=== PATIENT | male | born 1935 | race Caucasian/White ===

== ENCOUNTER → 2018-07-11 | Outpatient (CLI) | payer OTHER, MEDICARE ==
[~2018-07-11] MED LIST: ALDACTONE25 MG PO; ASPIRIN EC81 M1 PO; BYSTOLIC 5 MG5 MG PO; CARDIOTAB PO; CARVEDILOL3.125 MG PO; CARVEDILOL6.25 MG PO; CEFTIN 250 MG250 MG PO; CO Q-10200 MG PO; COQ10 SG 100 S1 EACH PO; COREG3.125 MG PO; CRESTOR10 MG; CRESTOR10 MG PO; DEMADEX20 MG PO; ENTRESTO 24 MG1 EACH PO; ENTRESTO 49 MG1 EACH; FISH OIL 1,001000 M2 PO; FISH OIL SOFTG1 EACH; FLOMAX0.4 MG PO; FUROSEMIDE 40 M40 MG PO; GUAIFENESIN/COD10 M1 PO; HALDOL PO; IBUPROFEN 400400 M1 PO; LACTINEX CHEWA1 EACH PO; LASIX 40 MG TAB40 M1 PO; LIVALO4 MG PO; LOSARTAN POTASS25 MG PO; MULTIVITAMINS1 EAC7 PO; NAFCILLIN 1GM AD1 G1; NIASPAN 500 MG500 M1 PO; OMEGA-3100 MG PO; OMEGA-31000 M1 PO; PLAVIX 75 MG TA75 MG PO; POTASSIUM20 PO; PREDNISONE 20 M20 MG PO; TESSALON PERLE100 MG PO; TYLENOL325 MG PO
== END ==
LOC: MRI 09:32
DX: M51.36 Other intervertebral disc degeneration, lumbar region (principal); M48.061 Spinal stenosis, lumbar region without neurogenic claudication; M47.816 Spondylosis without myelopathy or radiculopathy, lumbar region; M51.37 Other intervertebral disc degeneration, lumbosacral region; M48.07 Spinal stenosis, lumbosacral region; M41.86 Other forms of scoliosis, lumbar region; M71.38 Other bursal cyst, other site; Z98.890 Other specified postprocedural states

== ENCOUNTER → 2018-09-07 | Outpatient (CLI) | payer OTHER, MEDICARE ==
[2018-09-07] VITALS (7 sets, daily range): BP systolic 96–103; BP diastolic 55–68
[~2018-09-07] VITALS: Ht 185.4 cm; Wt 75.7 kg
[~2018-09-07] MED LIST changes: +ALIGN4 MG PO; +DIGOXIN125 MCG PO
== END | disposition home or self-care (01) ==
LOC: CAT 12:16 → EDSTATUS 13:24
DX: M71.38 Other bursal cyst, other site (principal); M54.16 Radiculopathy, lumbar region; E78.5 Hyperlipidemia, unspecified; I25.2 Old myocardial infarction; I42.9 Cardiomyopathy, unspecified; I49.9 Cardiac arrhythmia, unspecified; Z95.1 Presence of aortocoronary bypass graft; I25.10 Atherosclerotic heart disease of native coronary artery without angina pectoris; Z98.890 Other specified postprocedural states; Z98.61 Coronary angioplasty status; Z88.8 Allergy status to other drugs, medicaments and biological substances; Z79.899 Other long term (current) drug therapy

== ENCOUNTER → 2018-09-25 | Outpatient (CLI) | payer OTHER, MEDICARE | LOC: CAT 12:21 | DX: R10.2 Pelvic and perineal pain (principal); M25.551 Pain in right hip; M47.816 Spondylosis without myelopathy or radiculopathy, lumbar region; M48.061 Spinal stenosis, lumbar region without neurogenic claudication ==

== ENCOUNTER 2018-10-14 15:08 | Inpatient (IN) | payer OTHER, MEDICARE ==
[~2018-10-14] VITALS: Ht 185.4 cm; Wt 75.7 kg
--- NOTE | ~2018-10-14 | HC ---
[facility] [place] [address] CONSULTATION Name: NEPTALI RODRIGUEZ Room #: 205-P ADM IN M.R.#: [id number] Admission: 10/14/18 ������������������ Attend Phys: Nate Coronel Discharge: ������������������ Date of : 39 Report #: [id number] THIS REPORT FOR: //name// CC: Nate Moncada Ortiz DATE OF SERVICE: 10/14/2018 CARDIOLOGY CONSULTATION HISTORY OF PRESENT ILLNESS: The patient is an 82-year-old male well known to myself. He has a history of a mildly severe ischemic cardiomyopathy. He has been having some progressive shortness of breath and some dyspnea, generalized weakness. Although, he denies fever or chills associated. He had bypass surgery, then subsequently a stent to the left main. This was in 2010. 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 The ejection fraction has been 25-30% range with anterior apical septal akinesis and moderate mitral and tricuspid regurgitation by history. He has been doing fairly well and was scheduled for nuclear stress test and echo next month. He has been compliant with his medications. They have been carvedilol 3.125, digoxin 0.125, Multi-Calixto, omega 3, probiotic, Entresto 49/51 b.i.d., torsemide 20, rosuvastatin 20 and Xarelto 15. PAST MEDICAL HISTORY: Positive for coronary artery disease, prior bypass, prior infarct, ischemic cardiomyopathy, functional class, at least functional class 2 until this event, DJD. 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 SOCIAL HISTORY: He is , socially moderate alcohol use, no tobacco use. He is retired, 3 cups of coffee a day, some exercise. FAMILY HISTORY: Strongly positive for premature coronary artery disease including mother, father and 2 brothers. REVIEW OF SYSTEMS: Negative except for the generalized weakness and progressive shortness of breath over the last few days. His EKG is atrial fibrillation with nonspecific changes. PHYSICAL EXAMINATION: GENERAL: He is alert. He is less short of breath after having received significant diuresis. VITAL SIGNS: Blood pressure has been in the 90 systolic range. Pulse is 70s. HEENT: Eyes reveal xanthelasmas. Pharynx is clear. NECK: Shows preserved upstrokes, may be evidence of a trace of JVD. LUNGS: Clear anteriorly. They are diminished in the bases, few crackles in the [facility] [address] [place] [address] CONSULTATION Name: NEPTALI RODRIGUEZ Room #: 205-P [facility] IN M.R.#: [id number] Admission: 10/14/18 ������������������ Attend Phys: Nate Coronel Discharge: ������������������ Date of : 37 Report #: [id number] left base. CARDIOVASCULAR: Regular rate and rhythm, S1, S2, without murmur or gallop. ABDOMEN: Soft, slightly protuberant. EXTREMITIES: Reveal trace of edema. Distal pulses diminished, but intact. NEUROLOGIC: Nonfocal. SKIN: Warm and dry without xanthoma or ulcer. MUSCULOSKELETAL: No gross joint deformity. LABORATORY DATA: Creatinine 1.9, potassium 5.0, alkaline phosphatase 122, GFR 34. Troponin is 4.43, not significant for ischemia. BNP is 9872. H and H 9.3 and 29.1, white count 9.7. Chest x-ray shows some interstitial edema, perihilar infiltrate. ASSESSMENT: 1. Acute on chronic systolic heart failure. 2. Coronary artery disease with prior coronary artery bypass graft and left main stent. 3. Moderately severe ischemic cardiomyopathy, ejection fraction of 25-30% range by history. 4. Permanent atrial fibrillation. 5. Hypertension. 6. Chronic kidney disease. 7. Hypercholesterolemia. RECOMMENDATIONS AND PLAN: We will currently hold Entresto. We will continue with Coreg due to borderline hypotension, although this is not far off of his baseline. I will continue her Lasix 80 IV b.i.d. Digoxin level is to be checked. We will repeat the echo, Doppler in the morning. Doxycycline had been initiated, although I do not think there is any evidence of any pneumonitis. I will continue to follow repeating echo and possibly consider repeating and obtaining this nuclear stress test pharmacologic to rule out significant underlying ischemia. It is not clear, if he has been fairly regimen in his diet with some minimal weight gain, so it is not clear whether he has tipped him over, but certainly chest x-ray, BNP, would support an acute on chronic systolic failure exacerbation. Thank you for asking me to assist in the care of this patient. ��������������������������������������������� ���������������������������������������� By: ��������������������������������������������� 2232 0925 Juan M Joseph MD, FACC /nt
--- NOTE | ~2018-10-14 | HC ---
[facility] [place] [address] CONSULTATION Name: NEPTALI RODRIGUEZ Room #: 205-P [facility] IN M.R.#: [id number] Admission: 10/14/18 ������������������ Attend Phys: Nate Coronel Discharge: ������������������ Date of : 37 Report #: [id number] THIS REPORT FOR: //name// CC: Nate Moncada Ortiz DATE OF SERVICE: 10/15/2018 GASTROINTESTINAL CONSULTATION HISTORY OF PRESENT ILLNESS: The patient is an 82-year-old male who I have been asked to see for further evaluation of his normocytic anemia. He was hospitalized for increasing shortness of breath and what looks like congestive heart failure and has had significant improvement of his symptoms since hospitalization. His medical history is very complicated, but he did have a colonoscopy approximately 3 years ago. He denies any rectal bleeding, change in bowel pattern besides some mild constipation while taking tramadol. He denies melena. He also has had some generalized weakness and shortness of breath with exertion. Medical history is well outlined in the chart, but includes angioplasty, inguinal hernia repair, tonsillectomy, left shoulder injury, heart failure, ischemic cardiomyopathy, mild to moderate aortic regurg, mitral regurg, tricuspid regurg, back surgery, AICD placement. He denies alcohol or tobacco consumption. MEDICATION LIST: Includes CoQ10, Coreg, Entresto, multivitamin, fish oil, Flomax, Demadex, Lanoxin, Tylenol, Align, doxycycline, Xarelto, Crestor. REVIEW OF SYSTEMS: Negative for weight loss. He has had weakness and some fatigue. He denies head, eyes, ears, nose or throat complaints. He denies chest pain, chest palpitation, chest pressure, cough, shortness of breath, wheezing, genitourinary, musculoskeletal or neuropsychiatric complaints beyond that mentioned above. PHYSICAL EXAMINATION: VITAL SIGNS: Afebrile, vital signs stable. HEENT: Nonicteric. NECK: No JVD, thyromegaly or bruits. CARDIOVASCULAR: Regular. LUNGS: Clear. ABDOMEN: Nonprotuberant. PERTINENT LABORATORY DATA: Include hemoglobin 9.3, MCV 87, RDW 17, platelet count 297, white count 9.7. Chemistry: BUN 46, creatinine 1.9. He did have positive troponins. Albumin 2.9, mild congestive heart failure on x-ray. ASSESSMENT: In summary, the patient has anemia with normal indices. This could [address] [place] [address] CONSULTATION Name: NEPTALI RODRIGUEZ Room #: 205-P [facility] IN M.R.#: [id number] Admission: 10/14/18 ������������������ Attend Phys: Nate Coronel Discharge: ������������������ Date of : 37 Report #: [id number] be related to renal insufficiency and other non-GI related etiologies. He has had no significant change in his bowel pattern, denies blood in his stools either black or bloody. If his anemia persisted or worsened, I would certainly heme test his stool to see if there was evidence of active bleeding. I would empirically cover him with a PPI. We will follow. ��������������������������������������������� ���������������������������������������� By: ��������������������������������������������� [id number] Carl Glass MD /nt
[2018-10-14 15:09] VITALS: BP 98/64
[2018-10-14 15:51] LABS: HEMATOCRIT 29.1 % (42.0-52.0); HEMOGLOBIN 9.3 gm/dL (14.0-18.0); LYMPHOCYTES 27.3 % (24.0-44.0); MCH 27.7 pg (26.0-34.0); MCHC 31.9 g/dL (28.0-37.0); MONOCYTES 7.6 % (1.0-8.0); PLATELET COUNT 297 thou/uL (150-400); POLYS 62.1 % (36.0-66.0); RBC 3.34 mil/uL (4.50-6.00); WBC 9.7 thou/uL (4.0-11.0)
[2018-10-14 15:58] LABS: CALCIUM 9.8 mg/dL (8.5-10.1); CREATININE 1.9 mg/dL (0.7-1.3)
[2018-10-14] MEDS ORDERED: DOXYCYCLINE 10100 MG PO (16:01)
[2018-10-14 16:05] LABS: URINE BILIRUBIN NEGATIVE (Negative); URINE BLOOD NEGATIVE (Negative); URINE CLARITY CLEAR; URINE COLOR YELLOW; URINE GLUCOSE-RANDOM* NEGATIVE (Negative); URINE KETONES NEGATIVE (Negative); URINE LEUKOCYTES-REFLEX NEGATIVE (Negative); URINE NITRITE-REFLEX NEGATIVE (Negative); URINE PROTEIN (DIPSTICK) NEGATIVE (Negative); URINE UROBILINOGEN 0.2 E.U./dl (0.2-1.0)
[2018-10-14 16:07] LABS: ALBUMIN 3.1 g/dL (3.4-5.0); TOTAL BILIRUBIN 0.7 mg/dL (<0.1-1.0); TOTAL PROTEIN 6.7 g/dL (6.4-8.2); TROPONIN-I 0.39 ng/mL (<0.06)
[2018-10-14 16:43] VITALS: BP 92/66
[2018-10-14] MEDS ORDERED: XARELTO15 MG PO (16:54)
[2018-10-14 16:55] VITALS: BP 94/65
[2018-10-14] MEDS ORDERED: CRESTOR20 MG PO (16:55)
[2018-10-14 17:10] VITALS: BP 99/73
--- NOTE | 2018-10-14 18:39 | NUR ---
PT TO THE UIT FROM THE ER - ORINETED TO ROOM AND BED SPACE. ASSESSMENT CHARTED. MEDS PER MAR - NO CO'S OF PAIN OR NAUSEA. PT IS FALL RISK WITH PRECAUTIONS IN PLACE. DANIEL DIET AND FLUIDS. NO CO'S T THE PRESENT TIME.
[2018-10-14 19:40] VITALS: BP 81/49
[2018-10-15] VITALS (7 sets, daily range): BP systolic 94–124; BP diastolic 56–72
[2018-10-15 05:44] LABS: CALCIUM 9.3 mg/dL (8.5-10.1); CREATININE 1.9 mg/dL (0.7-1.3); POTASSIUM 4.4 mmol/L (3.5-5.1)
--- NOTE | 2018-10-15 05:52 | NUR ---
ASSESSMENTS CHARTED. PATIENT REQUESTED SLEEPING PILL AT START OF SHIFT, THEN TURNED IT DOWN WHEN EVENING MEDS WERE PASSED. C/O FEELING LIKE HIS HEART WAS SLOWING DOWN EVERYTIME HE STARTED TO SLEEP, SO HE WOULD WAKE HIMSELF UP. TOLD HIM HIS HEART RATE WAS FINE, WE WERE MONITORING IT AND IT WAS OK TO FALL ASLEEP. SLEPT FITFULLY. USING URINAL AT BEDSIDE, FORGETS TO CALL PRIOR TO STANDING UP TO USE URINAL. FALL PRECAUTIONS IN PLACE. DENIES PAIN.
[2018-10-15 05:53] LABS: ALBUMIN 2.9 g/dL (3.4-5.0); PHOSPHORUS 3.7 mg/dL (2.5-4.9); TROPONIN-I 0.42 ng/mL (<0.06)
--- NOTE | 2018-10-15 15:24 | EKG ---
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 : 1935 Requested By: Julissa Head Order Number: [id number] MD: Morro Weiss Measurements Intervals [place] Rate: 80 P: FL: QRS: -31 QRSD: 112 T: 167 QT: 402 QTc: 464 Interpretive Statements Atrial fibrillation Nonspecific intraventricular conduction delay Nonspecific ST and T wave abnormality Compared to ECG 02/12/2015 07:40:16 atrial fibrillation has replaced sinus rhythm premature ventricular complexes are no longer present Electronically Signed On 10-15-2018 15:24:34 CDT by Morro Weiss [email or web address] ��������������������������������������������� <ELECTRONICALLY SIGNED> ���������������������������������������� By: Morro Weiss MD, [facility] ��������������������������������������������� 10/15/18 1524 1531 1531 Morro Weiss MD, [facility] /EPI
--- NOTE | 2018-10-15 15:28 | NUR ---
REMAINS AFIB/BBB WITH VR 70-80, LUNGS CLEAR, RA SAT IS 95% UP IN ROOM WITH WALKER, STEADY WITH WALKER, PT WORRIED ABOUT NOT SLEEPING AT NIGHT, ENCOURAGED TO TAKE A SLEEPING PILL TONIGHT. NO C/O CHEST PAIN OR SOB TODAY, STAYING WITHIN FR, DIEURESING WELL WILL CONTINUE TO MONITER AND CARE FOR PT PER PLANOF CARE
[2018-10-16 04:03] LABS: CALCIUM 9.6 mg/dL (8.5-10.1); CREATININE 2.1 mg/dL (0.7-1.3)
[2018-10-16 04:50] VITALS: BP 102/69
--- NOTE | 2018-10-16 05:58 | NUR ---
ASSESSMENTS CHARTED. PT TOOK REQUESTED SLEEPING PILL TONIGHT, BUT ALSO RECEIVED A DOSE OF LASIX AT BEDTIME. PATIENT WAS ABLE TO SLEEP FITFULLY. NPO SINCE MIDNIGHT FOR STRESS TEST. STILL HAS NOT HAD BOWEL MOVEMENT. REQUESTED PRUNE JUICE. DENIED PAIN. FALL PRECAUTIONS IN PLACE. PATIENT IMPULSIVE AND FORGETFUL OF ABILITY.
[2018-10-16 07:58] LABS: HEMATOCRIT 27.3 % (42.0-52.0); MCH 28.1 pg (26.0-34.0); MCHC 32.8 g/dL (28.0-37.0); MCV 85.7 fL (80.0-100.0); RBC 3.19 mil/uL (4.50-6.00); RDW 16.8 % (10.5-14.5); WBC 9.7 thou/uL (4.0-11.0)
[2018-10-16 08:20] VITALS: BP 88/54
[2018-10-16 11:09] LABS: KAPPA FREE LIGHT CHAINS 84.3 mg/L (3.3-19.4); KAPPA/LAMBDA RATIO 4.79 (0.26-1.65); LAMBDA FREE LIGHT CHAINS 17.6 mg/L (5.7-26.3)
--- NOTE | 2018-10-16 11:47 | 2DMMODE ---
[facility] [address] [place] [address] 2 D/M-MODE ECHOCARDIOGRAM Name: NEPTALI RODRIGUEZ Room #: 205-P ADM IN M.R.#: [id number] ������������� Admission: 10/14/18 ������������� Attend Phys: Nate Carvajal Discharge: ��� ������������� ��� Date of : 39 Date of Service: 10/16/18 1146 �� Report #: [id number] �������� ��������������������������������������������[id number] THIS REPORT FOR: //name// APPROVED REPORT Study performed: 10/16/2018 11:00:57 EXAM: Comprehensive 2D, Doppler, and color-flow Echocardiogram Patient Location: Echo lab Room #: 205 Status: routine BSA: 1.97 HR: 79 bpm BP: 88/54 mmHg Rhythm: Atrial Fibrillation Other Information Study Quality: Good Indications Congestive Heart Failure Atrial Fibrillation CAD Cardiomyopathy 2D Dimensions RVDd: 47.24 mm IVSd: 9.28 (7-11mm) LVOT Diam: 22.31 (18-24mm) LVDd: 64.34 mm PWd: 8.80 (7-11mm) Ascending Ao: 40.11 (22-36mm) LVDs: 55.91 (25-40mm) Aortic Root: 36.21 mm IVC: 23.00 mm Volumes Left Atrial Volume (Systole) Single Plane 4CH: 123.39 mL Single Plane 2CH: 87.46 mL LA ESV Index: 58.00 mL/m2 Aortic Valve AoV Peak Alexx.: 1.18 m/s AO Peak Gr.: 5.55 mmHg LVOT Max P.93 mmHg LVOT Max V: 0.86 m/s BECKI Vmax: 2.84 cm2 Pulmonary Valve [facility] [address] [place] [address] 2 D/M-MODE ECHOCARDIOGRAM Name: NEPTALI RODRIGUEZ Room #: 205-P [facility] IN ..#: [id number] ������������� Admission: 10/14/18 ������������� Attend Phys: Nate Carvajal Discharge: ��� ������������� ��� Date of : 39 Date of Service: 10/16/18 1146 �� Report #: [id number] �������� ��������������������������������������������[id number] PV Peak Alexx.: 0.81 m/s PV Peak Gr.: 2.65 mmHg Tricuspid Valve TR Peak Alexx.: 2.63 m/s TR Peak Gr.: 27.58 mmHg PA Pressure: 38.00 mmHg Left Ventricle Left ventricle is dilated. There is severe global hypokinesis of the left ventricle.worse inf lateral There is normal left ventricular wall thickness. Left ventricular ejection fraction is severely decreased. LVEF is 20-25%. This study is not technically sufficient to allow evaluation of the LV diastolic function due to atrial fibrillation. Right Ventricle Right ventricle is dilated. Right ventricle is hypokinetic. Atria Left atrium is dilated. Right atrium is dilated. Aortic Valve The aortic valve is normal in structure. Aortic valve is calcified. Mild aortic regurgitation. There is no aortic valvular stenosis. Mitral Valve The mitral valve is normal in structure. Moderate mitral regurgitation. No evidence of mitral valve stenosis. Tricuspid Valve The tricuspid valve is normal in structure. There is mild tricuspid regurgitation. Estimated PAP 38 mmHg. There is mild pulmonary hypertension. Pulmonic Valve The pulmonary valve is normal in structure. Mild pulmonic regurgitation. Great Vessels The aortic root is normal in size. IVC is dilated and collapses <50% with inspiration. Pericardium There is no pericardial effusion. [facility] [address] [place] [address] 2 D/M-MODE ECHOCARDIOGRAM Name: NEPTALI RODRIGUEZ Room #: 205-P [facility] IN .R.#: [id number] ������������� Admission: 10/14/18 ������������� Attend Phys: Nate Carvajal Discharge: ��� ������������� ��� Date of : 39 Date of Service: 10/16/18 1146 �� Report #: [id number] �������� ��������������������������������������������[id number] <Conclusion> Left ventricle is dilated. Left ventricular ejection fraction is severely decreased. There is severe global hypokinesis of the left ventricle.worse inf lateral Right ventricle is dilated. Right ventricle is hypokinetic. Left atrium is dilated. Right atrium is dilated. The aortic valve is normal in structure. Aortic valve is calcified. Mild aortic regurgitation. Moderate mitral regurgitation. There is mild tricuspid regurgitation. Estimated PAP 38 mmHg. There is mild pulmonary hypertension. The aortic root is normal in size. There is no pericardial effusion. ��������������������������������������������� <ELECTRONICALLY SIGNED> ���������������������������������������� By: Juan M Joseph MD, [facility] ��������������������������������������������� 10/16/18 1146 1146 45 Juan M Joseph MD, [facility] /INF
--- NOTE | 2018-10-16 16:01 | NUR ---
VSS REMAINS AFIB WITH BBB, LUNGS CLEAR AND DIMINISHED O2 SAT RA IS 97% TST TEST TODAY, NO C/O CHEST PAIN. UP IN GAY WITH WALKER WITH AND TOLERATED WELL AND STEADY ON FEET. WILL CONTINUE TO MONITER AND CARE FOR PT PER PLANOF CARE
--- NOTE | 2018-10-16 17:07 | NUR ---
met with at bedside. Patient in restroom. reports her and patient live in independent home with steps inside home. reports railings on both sides of steps and no difficulty for her or patient.Patient uses a walker, has been ambulating outside in hallway. Casemgt following for dc planning.
[2018-10-16 17:25] VITALS: BP 92/62
[2018-10-16 20:04] VITALS: BP 104/73
--- NOTE | 2018-10-17 02:26 | NUR ---
A/O X 4.DENIES PAIN AND COMPLAIN OF A LITTLE SOB.SPO2 97% ON ROOM AIR.UP IN THE HALLWAYS WITH STANDBY ASSIST WITH THE TECH USING THE WALKER.PT STATES THAT HE WANT TO BE ABLE TO GET GOOD NIGHT SLEEP.MONITOR SHOWS AFIB.ON FLUID RESTRICTION.WILL MONITOR AND CONTINUE POC.
[2018-10-17 04:19] VITALS: BP 98/65
[2018-10-17 07:34] VITALS: BP 94/63
[2018-10-17 08:28] LABS: CALCIUM 9.7 mg/dL (8.5-10.1); CREATININE 1.8 mg/dL (0.7-1.3); POTASSIUM 4.4 mmol/L (3.5-5.1)
[2018-10-17 11:45] VITALS: BP 97/58
[2018-10-17 13:32] VITALS: BP 97/58
--- NOTE | 2018-10-17 13:50 | NUR ---
PT CARE ASSUMED APPROX 0700. PT ALERT AND ORIENTED X4. DENIED PAIN AND SOA. VSS. UP WITH MIN ASSIST. DISCHARGED AT THIS TIME. PAPERWORK FOR DISCHARGE REVIEWED WITH PT AND SPOUSE PRIOR TO DISCHARGE. BOTH DENIED QUESTIONS AND CONCERNS ABOUT MEDS, F/U APPTS, DIET, FLUID RESTRICTION AND GENERAL POST HOSPITAL CARE. CARDIAC REHAB EDUCATED PT PRIOR TO DISCHARGE WELL. NO CONCERNS REPORTED REGARDING ANY EDUCATION RECEIVED BY PT OR SPOUSE. IV OUT AND TELE OFF PRIOR TO DISCHARGE. HOSPITAL STAFF ESCORTED PT OUT WITHOUT ISSUE.
== END 2018-10-17 14:00 | disposition home or self-care (01) | DRG 291 ==
LOC: ER 15:08 → EROBS 16:44 → 2N 16:44 → ENTRNSPT 10-17 13:51 → EDTRNSPTSTS 10-17 13:53 → 2N 10-17 14:00
PROVIDERS: Nurse Practitioner Adult Health; Student in an Organized Health Care Education/Training Program; ADMIT Hospitalist
DX: I13.0 Hypertensive heart and chronic kidney disease with heart failure and stage 1 through stage 4 chronic kidney disease, or unspecified chronic kidney disease (principal); I50.23 Acute on chronic systolic (congestive) heart failure; N17.9 Acute kidney failure, unspecified; N18.2 Chronic kidney disease, stage 2 (mild); I25.10 Atherosclerotic heart disease of native coronary artery without angina pectoris; I08.1 Rheumatic disorders of both mitral and tricuspid valves; K59.00 Constipation, unspecified; E78.00 Pure hypercholesterolemia, unspecified; D64.9 Anemia, unspecified; I25.5 Ischemic cardiomyopathy; E78.5 Hyperlipidemia, unspecified; M19.90 Unspecified osteoarthritis, unspecified site; I48.91 Unspecified atrial fibrillation; Z95.5 Presence of coronary angioplasty implant and graft; I25.2 Old myocardial infarction; Z95.1 Presence of aortocoronary bypass graft; Z95.810 Presence of automatic (implantable) cardiac defibrillator; Z82.49 Family history of ischemic heart disease and other diseases of the circulatory system
CPT/HCPCS: 10081; 10194

== ENCOUNTER 2018-11-07 09:36 | Inpatient (IN) | payer OTHER, MEDICARE ==
[2018-11-07] VITALS (10 sets, daily range): BP systolic 79–103; BP diastolic 50–68
[~2018-11-07] VITALS: Ht 185.4 cm; Wt 97.9 kg
[~2018-11-07 09:36] MED LIST changes: +CRESTOR20 MG PO; +DOXYCYCLINE 10100 MG PO; +XARELTO15 MG PO
[2018-11-07 10:02] LABS: ABSOLUTE NEUTROPHILS 5.6 thou/uL (1.4-8.2); BASOPHILS 1.3 % (0.0-2.0); EOSINOPHILS 1.5 % (0.0-3.0); HEMOGLOBIN 9.4 gm/dL (14.0-18.0); LYMPHOCYTES 40.2 % (24.0-44.0); MCH 27.6 pg (26.0-34.0); MCHC 32.3 g/dL (28.0-37.0); MCV 85.3 fL (80.0-100.0); MONOCYTES 5.8 % (1.0-8.0); PLATELET COUNT 217 thou/uL (150-400); POLYS 51.2 % (36.0-66.0)
[2018-11-07 10:12] LABS: CALCIUM 9.7 mg/dL (8.5-10.1); CREATININE 2.7 mg/dL (0.7-1.3); POTASSIUM 4.1 mmol/L (3.5-5.1)
[2018-11-07 10:22] LABS: ALBUMIN 3.3 g/dL (3.4-5.0); MAGNESIUM 2.6 mg/dL (1.8-2.4); TOTAL BILIRUBIN 1.2 mg/dL (<0.1-1.0); TOTAL PROTEIN 6.8 g/dL (6.4-8.2)
[2018-11-07 10:24] LABS: TROPONIN-I 0.7 ng/mL (<0.06)
[2018-11-07 10:47] LABS: INR 1.7; PROTIME 17.6 Seconds (9.3-11.4)
[2018-11-07] MEDS ORDERED: TRAMADOL 50 MG50 MG PO (11:47)
--- NOTE | 2018-11-07 15:53 | NUR ---
ASSUME CARE OF PT AT APPROX 1330. PT ADMITTED FROM ED D/T SOA AND FATIGUE. A&O. VSS. DENIES PAIN. ORIENTED TO ROOM. ASSESSMENT CHARTED. PT UNSTEADY ON FEET SO WILL USE URINAL IN BED. PT NPO AFTER MN FOR EDG TOMORROW. GI SAID TO HOLD XARELTO. MONITOR HGB. WILL CONTINUE TO MONITOR AND FOLLOW POC.
--- NOTE | 2018-11-07 17:41 | NUR ---
CONTINUING TO MONITOR PT AFTER ADMISSION. ASSESSMENT CHARTED. MEDS GIVEN PER MAR. A&O. VSS. NO C/O CHEST PAIN. UNSTEADY ON FEET. AT BEDSIDE. WILL CONTINUE TO MONIOR AND FOLLOW POC.
--- NOTE | 2018-11-07 18:33 | NUR ---
CRITICAL LAB RESULTS CALLED TO , NO NEW ORDERS RECEIVED. PT HYPOTENSIVE, BP RESULTS COMMUNICATED TO PHYSICIAN, NO NEW ORDERS RECEIVED.
[2018-11-08] VITALS (8 sets, daily range): BP systolic 82–112; BP diastolic 30–72
[2018-11-08 04:36] LABS: CALCIUM 8.9 mg/dL (8.5-10.1); CREATININE 2.8 mg/dL (0.7-1.3); POTASSIUM 4.4 mmol/L (3.5-5.1)
[2018-11-08 04:38] LABS: TROPONIN-I 0.67 ng/mL (<0.06)
[2018-11-08 04:42] LABS: HEMATOCRIT 25.8 % (42.0-52.0); HEMOGLOBIN 8.6 gm/dL (14.0-18.0); MCH 28.2 pg (26.0-34.0); MCHC 33.3 g/dL (28.0-37.0); MCV 84.6 fL (80.0-100.0); RBC 3.05 mil/uL (4.50-6.00); RDW 17.8 % (10.5-14.5); WBC 10.3 thou/uL (4.0-11.0)
--- NOTE | 2018-11-08 05:04 | NUR ---
RECEIVED REPORT AND ASSUMED PATIENT CARE AT 2330. PATIENT AAOX4 AND ON ROOM AIR. PLACED HITCHCOCK IN PATIENT PER DR. PHILLIP'S ORDER D/T BLADDER SCAN SHOWING 310. AFTER PLACING ANOTHER SMALLER SIZED HITCHCOCK, PATIENT BEGAN TO RELAX. MEDICATED PATIENT WITH TRAMADOL (NOT TRAZODONE) WHICH HE TAKES FOR ANXIETY. PATIENT HAD A VERY RESTLESS NIGHT AND SLEPT ONLY AROUND 1-2 HOURS. VS REMAINED STABLE AND NO ACUTE EVENTS OCCURRED DURING THIS SHIFT.
[2018-11-08 13:11] LABS: HEMATOCRIT 27.5 % (42.0-52.0)
--- NOTE | 2018-11-08 16:36 | NUR ---
met with patient and at bedside. Patient resides with in home. He has steps inside home with railing. He uses a walker in home and outside of home. He has a walker on both levels of home. reports no difficutly with steps. reports he still drives and she drives as well for apts. If HH needed they are interested [facility]. PCP Dr Ortiz. Casemgt following for dc planning.
--- NOTE | 2018-11-08 16:55 | NUR ---
ASSUMED CARE OF PT AT SHIFT CHANGE. ASSESSEMENTS CHARTED. MEDS GIVEN PER MAR. HOLD PB MEDS AND DIURETICS PER DR ORDER. WILL CONTINUE FLUIDS. NPO AFTER MIDNIGHT FOR EGD TOMORROW. SUPPLEMENTS ADDED TO DIET PT NOT EATING MUCH OF MEALS. A&O BUT FORTGETFULL. NO C/O PAIN. HITCHCOCK IN PLACE DUE TO RETENTION. PT OFTEN ANXIOUS WITH RAPID SHALLOW BREATHING. TAUGHT PT DEEP BREATHING TECHNIQUE TO HELP WITH ANXIETY. REQUESTS TRAMADOL FOR ANXIETY. AT BEDSIDE. WILL CONTINUE TO MONITOR AND FOLLOW POC.
--- NOTE | 2018-11-08 19:35 | NUR ---
ASSESSMENTS AND DOCUMENTATION DOCUMENTED BY NURSE JACQUELINE ARCE REVIEWED, AGREE WITH ASSESSMENTS AND DOCUMENTATION.
--- NOTE | 2018-11-09 02:40 | NUR ---
ASSESSMENT: PT REMAIN ALERT AND ORIENT TIMES THREE, FORGETFUL AT TIMES THINKING THAT IT WAS IN THE MORNING. EASY TO REORIENT TO PLACE AND TIME. PT IS NPO AT MD FOR A SCHEDULED EGD. AFIB PER MONITOR. VSS, AFEBRILE. WAS AT THE BEDSIDE AT THE BEGINNING OF THE SHIFT. HITCHCOCK PATENT WITH DARK YELLOW UO. NO BM THIS SHIFT THUS FAR. SACRAL AREA NOTED TO HAVE REDNESSM BARRIER CREAM APPLIED. DENIES PAIN. DOES GET VERY ANXIOUS, XANAX GIVEN WITH GOOD RESULTS. PT HAS LABORED BREAHTING AND WITH 02 AT 2 LITERS HE SATS > 92%. SLOW PROGRESS TOWARDS DC GOALS, WILL CONTINUE TO MONITOR.
[2018-11-09 05:19] VITALS: BP 119/88
[2018-11-09 05:20] LABS: HEMATOCRIT 27.7 % (42.0-52.0); HEMOGLOBIN 8.9 gm/dL (14.0-18.0); MCH 27.4 pg (26.0-34.0); MCV 85.7 fL (80.0-100.0); RBC 3.23 mil/uL (4.50-6.00); RDW 18.1 % (10.5-14.5); WBC 12.1 thou/uL (4.0-11.0)
[2018-11-09 05:32] LABS: CALCIUM 9.1 mg/dL (8.5-10.1); CREATININE 2.3 mg/dL (0.7-1.3); PHOSPHORUS 3.9 mg/dL (2.5-4.9); POTASSIUM 4.1 mmol/L (3.5-5.1)
[2018-11-09 07:05] VITALS: BP 102/69
--- NOTE | 2018-11-09 08:20 | EKG ---
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 : 1935 Requested By: Kunal Clemens Order Number: [id number] MD: Morro Weiss Measurements Intervals [place] Rate: 76 P: ID: QRS: -36 QRSD: 118 T: 158 QT: 391 QTc: 440 Interpretive Statements Atrial fibrillation with occasional premature ventricular complexes Nonspecific intraventricular conduction delay Nonspecific ST and T wave abnormality Baseline wander in lead(s) V2 Compared to ECG 10/14/2018 15:31:43 Premature ventricular complexes are now present Electronically Signed On 11-09-2018 8:20:38 CDT by Morro Weiss [email or web address] <ELECTRONICALLY SIGNED> By: Morro Weiss MD, [facility] 11/09/18 0820 0944 0944 Morro Weiss MD, [facility] /EPI
--- NOTE | 2018-11-09 10:30 | NUR ---
FAXED REFERRAL TO A HH SPOKE WITH ALEJANDRA INTAKE SHE RECEIVED REFERRAL AND CAN ACCEPT PT AT DC. DCP TO FOLLOW.
[2018-11-09 11:05] VITALS: BP 98/60
--- NOTE | 2018-11-09 11:08 | NUR ---
Nutrition: Received consult for poor intake. Met with at bedside for interview as pt was resting - anxious for upcoming procedure. NPO for planned EGD today. Admit: MAXIM, CHF, anemia. Hx: CHF, a fib, HTN, cardiomyopathy, CKD. Recently here at beginning of October. reports it "went downhill" after 10/17 discharge. Pt hasn't been eating as much for a few weeks, but still eating "so-so" at home. Specifically, not eating much x 2 days of hospital stay. Provided started Ensure Enlive TID. Pt is not a fan, but is trying to get him to drink 1/day. PO intake impacted most by taste changes. Pt tells , "nothing tastes good, everything tastes the same." Educated that with daily supplement, it can add 20g protein - equivalent protein to 3 oz meat. Also educated on Iron rich foods to consume. Weight otherwise unchanged. 167# on 09/07 to 169# on 11/09. On IVFs. Plan to specify in order to alternate Ensure flavors for variety per pt request as additional nutrition source. With 's constant po encouragement/support, protein discussion, and intervention in place with food ideas and supplements, otherwise deemed low nutrition risk.
--- NOTE | 2018-11-09 17:24 | NUR ---
PATIENT CARE ASSUMED, VSS, ASSESSMENT CHARTED, EGD PERFORMED. NO COMPLAINTS OF PAIN, PATIENT RESTING, ORDERS RECEIVED FOR COLONOSCOPY IN THE AM. AT BEDSIDE, WILL CONTINUE TO MONITOR
[2018-11-09 20:13] VITALS: BP 108/72
--- NOTE | 2018-11-10 03:43 | NUR ---
ASSUMED CARE OF PATIENT AT 1900. VSS, AFEBRILE. BOWEL PREP INITIATED, USING BSC THROUGH THE NIGHT. NPO AFTER MIDNIGHT. ANXIOUS AT TIMES, HOWEVER XANAX EFFECTIVE. AT BEDSIDE. PLANNED COLONOSCOPY IN AM.
[2018-11-10 04:14] VITALS: BP 114/81
[2018-11-10 05:31] LABS: CREATININE 2.2 mg/dL (0.7-1.3); PHOSPHORUS 4.5 mg/dL (2.5-4.9); POTASSIUM 4.3 mmol/L (3.5-5.1)
[2018-11-10 07:25] VITALS: BP 119/81
[2018-11-10 10:40] VITALS: BP 107/65
--- NOTE | 2018-11-10 15:57 | NUR ---
RECEIVED REQUEST FROM DR. KHAN TO ASSIST [facility] [address]N EVAL[address] UPDATED [address]. TAFOYA WHO IS AGREEABLE. THERAPY ORDERS AND 5N CONSULT ORDERED. 5N CLINICAL EDITOR MET WITH PT AND SPOUSE AND AWAITING THERAPY EVALS. PER DR. KHAN, LIKELY READY Tuesday11/12/18.
--- NOTE | 2018-11-10 16:06 | PATH ---
[facility] [place] [address] PATHOLOGY RPT PROCEDURE Name: CHARLES WRIGHT Room #: 201-P ADM IN M.R.#: [id number] Admission: 11/07/18 Date of : 39 Discharge: Report #: [id number] Path Case #: [id number] [facility] Accession Number: [id number] . 01 Material submitted: . PART A: small bowel - BIOPSY SMALL BOWEL ULCERS PART B: ampulla of vater - BIOPSY SANDY-AMPULLAR MASS PART C: stomach - RANDOM GASTRIC BIOPSY R/O H. PYLORI . 01 Clinical history: . Pre-OP DX: Anemia Post-OP DX: Small bowel ulcers, periampullar mass, gastritis, submucosal gastric mass . 02 Diagnosis: A. "Small bowel ulcers", biopsy: - Small bowel mucosa with focal superficial ulceration. - Mild to moderate chronic inflammation. - Normal villous architecture. . B. "Sandy-ampullar mass", biopsy: - Small bowel mucosa with mild chronic inflammation and focal submucosal lymphoid follicle. . C. Stomach, random biopsies: - Chronic superficial gastritis, mild. - No evidence of Helicobacter pylori on immunoperoxidase stain. (SHYANNE:parvez; 11/10/2018) QTP/11/10/2018 . 02 Electronically signed: . Bertin Fuentes MD, Pathologist NPI- [id number] . 01 Gross description: . A. Received in formalin labeled "Charles Wright, KRYSTAL small bowel ulcers," are 3 segments of berg soft tissue measuring 1.1 x 0.6 x 0.3 cm in aggregate dimensions and ranging from 0.4 to 0.5 cm in maximum dimension. The specimen is submitted entirely in cassette A1. . B. Received in formalin labeled "Charles Wright, KRYSTAL sandy-ampullar mass," are 3 segments of berg soft tissue measuring 0.5 x 0.5 x 0.2 cm in aggregate dimensions and ranging from 0.2 to 0.3 cm in maximum dimension. The specimen is submitted entirely in cassette B1. . C. Received in formalin labeled "Charles Wright, random gastric BX," are 5 segments of berg soft tissue measuring 1.5 x 1.3 x 0.3 [place] [address] PATHOLOGY RPT PROCEDURE Name: CHARLES WRIGHT Room #: 201-P ADM IN M.R.#: [id number] Admission: 11/07/18 Date of : 39 Discharge: Report #: [id number] Path Case #: [id number] dimensions and ranging from 0.4 to 0.9 cm in maximum dimension. The specimen is submitted entirely in cassette C1. (TSD; 11/09/2018) TOB/TOB . 02 Pathologist provided ICD-10: K63.3, K63.9, K29.50 . 02 CPT . 196829, 860374, [id number] Specimen Comment: Report sent to and Performed at: [address], [place] [id number] MD Poli Moreno MD Phone: [phone] Performed at: [address] [id number] MD Tanisha Coronado MD Phone: [phone]
[2018-11-10 16:10] VITALS: BP 104/72
[2018-11-10 19:48] VITALS: BP 122/72
[2018-11-11] VITALS (25 sets, daily range): BP systolic 91–122; BP diastolic 55–79
--- NOTE | 2018-11-11 03:17 | NUR ---
PATIENT ALERT TO NAME WITH CONFUSION. SEVERAL ATTEMPTS TO GET OOB DURING THE NIGHT. AT BEDSIDE AT BEGINNING OF SHIFT, HOWEVER, SHE WENT HOME FOR THE NIGHT. PATIENT VERY ANXIOUS ABOUT LEAVING, REORIENTED FREQUENTLY. HITCHCOCK TO D/D WITH CLEAR YELLOW URINE. PATIENT PULLED IV OUT AND ANOTHER WAS PLACED AND WRAPPED. IVF INFUSING PER ORDER. MEDICATED X1 FOR ANXIETY AND X1 FOR PAIN AT TIME OF NOTE. WILL MONITOR.
[2018-11-11 05:59] LABS: ALBUMIN 3.1 g/dL (3.4-5.0); CALCIUM 9.1 mg/dL (8.5-10.1); CREATININE 2.6 mg/dL (0.7-1.3); PHOSPHORUS 4.6 mg/dL (2.5-4.9); POTASSIUM 4.2 mmol/L (3.5-5.1)
--- NOTE | 2018-11-11 17:17 | NUR ---
ORIENTED TO SELF. DOES ANSWER YES/NO QUESTIONS APPROPRIATELY. HOVERING AT BEDSIDE. HITCHCOCK TO DD. DOWN FOR CXR THIS A.M. BUN 72, CR 26 NOTED. PT ATTEMPTS TO AMBULATE, BUT ONLY FIVE STEPS R/T PROFOUND WEAKNESS. BED LINENS CHANGED. AFIB PER TELE. FREQUENT CHECKS; WILL CONTINUE TO MONITOR.
--- NOTE | 2018-11-11 18:30 | NUR ---
DR. NGUYEN ORDERS TRANSFER TO ICU FOR DOBUTAMINE DRIP. JASON MELTON SUP. CALLED. SHE STATES TRANSFER WILL OCCUR ON NEXT SHIFT. WILL GIVE REPORT TO EVENING SHIFT; NO ROOM NUMBER YET. ATTEMPTED TO CALL REPORT TO ICU.
--- NOTE | 2018-11-11 18:52 | NUR ---
REPORT TO MONCHO HARO, ICU. PATIENT BY BED TO ICU, ACCOMPANIED BY JOHN SUMMERS, AND MONCHO GALRAZA. IN TOW.
[2018-11-11 20:22] LABS: BE(vivo) -7.2 mmol/L (-2 to +3); HCO3 16.5 mmol/L (22.0-26.0); PCO2 27.5 mmHg (35.0-45.0); PO2 99.4 mmHg (80.0-100.0); pH 7.397 (7.360-7.450); sO2 97.6 % (92.0-98.0)
[2018-11-11 20:58] LABS: CALCIUM 9.2 mg/dL (8.5-10.1); CREATININE 2.6 mg/dL (0.7-1.3); POTASSIUM 4.1 mmol/L (3.5-5.1)
[2018-11-12] VITALS (52 sets, daily range): BP systolic 87–114; BP diastolic 54–76
--- NOTE | 2018-11-12 01:39 | NUR ---
PT WITH MULTIPLE NON-SUSTAIN V-TACH EVENT. STOP DOPAMINE GTT FOR NOW.
--- NOTE | 2018-11-12 04:30 | NUR ---
ASSUMED CAREOF PT. AT 1900 FROM CCU. PT. IS OREINTED TO SELF AND DROWSY. IT CAN BE HARD TO UNDERSTAND PT. AT TIMES. PT. IS PLEASANT AND CAN MOVE ALL EXTREMITIES. AFIB ON MONTITOR. MEDICATION TITRATION CHARTED. DOPAMINE AND DOBUTAMINE GTT STOPPED. BP REMAINS STABLE. ADEQUATE URINARY OUTOUT. NO BM. DOCTORS AWARE OF INCREASED PULMONARY EDEMA IN CHEST X-RAY. FOLLOW POC. ASSESSMENTS AND VITAL SIGNS CHARTED. WILL CONTINUE TO MONITOR.
[2018-11-12 05:49] LABS: ALBUMIN 2.7 g/dL (3.4-5.0); CALCIUM 8.9 mg/dL (8.5-10.1); CREATININE 2.4 mg/dL (0.7-1.3); PHOSPHORUS 4.4 mg/dL (2.5-4.9); POTASSIUM 3.9 mmol/L (3.5-5.1)
--- NOTE | 2018-11-12 13:36 | NUR ---
Assessement notes Pt was drowsy. Pt was easlily arousable but went back to sleep. LS was clear except crackles on RUL. Pt's HR was A.fib and MAP >70s. No edema. No dopamine or dobutamine was running. Sat was >95 w/ 2L of oxygen. 1200-Pt is alert, oriented x 4. Pt c/o why this nurse did not respone to call light fast enough. This nurse explained about the situation. Pt verbalized understanding (Pt called call light and all nurses at POD 1 were tied w/ the other pts at the moment). The spouse concerned about pt's swallow. Will pass down to incoming nurse. 1335-Xanax was administered as pt requested.
[2018-11-13] VITALS (17 sets, daily range): BP systolic 90–129; BP diastolic 58–75
--- NOTE | 2018-11-13 04:05 | NUR ---
ASSUMED CARE OF PT. AT 1900. NO NEW CHANGES. PT. REMAINS ALERT AND ORIENTED X4, PLEASANT, SOMETIMES ANXIOUS. DENIES PAIN. VSS. CONTROLLED AFIB, PVCS ON MONITOR. 2L O2 VIA NC, SATS MAINTAINED ABOVE 95%. ADEQUATE URINARY OUTPUT. NO BM. SLEPT THROUGH MOST OF THE NIGHT. FOLLOW POC. HOPEFUL TO TRANSFER TO CCU THIS AM. ASSESSMENTS AND VITAL SIGNS CHARTED. WILL CONTINUE TO MONITOR.
[2018-11-13 06:07] LABS: ALBUMIN 2.7 g/dL (3.4-5.0); CALCIUM 8.9 mg/dL (8.5-10.1); CREATININE 2.2 mg/dL (0.7-1.3); PHOSPHORUS 3.1 mg/dL (2.5-4.9); POTASSIUM 3.8 mmol/L (3.5-5.1)
--- NOTE | 2018-11-13 07:39 | NUR ---
TRANSFERRED PT. TO CCU WITH ALL BELONGINGS. REPORT CALLED TO WILIAN IVAN PRIOR TO TRANSFER. PT. TOLERATED TRANSFER, SAFELY IN CCU.
--- NOTE | 2018-11-13 18:29 | NUR ---
RECEIVED TRANSFER FROM ICU AT 0730 AND [facility], ASSESSMENT COMPLETED MONITOR A FIB WITH HEART MURMUR NOTED. VSS. PATIENT UP IN THE CHAIR TWICE TODAY. XANAX GIVEN FOR ANXIETY AND APPEARED TO SLEEP AFTERWARDS
[2018-11-14 03:33] VITALS: BP 99/65
[2018-11-14 04:58] LABS: ALBUMIN 2.6 g/dL (3.4-5.0); CALCIUM 8.9 mg/dL (8.5-10.1); PHOSPHORUS 2.6 mg/dL (2.5-4.9); POTASSIUM 3.8 mmol/L (3.5-5.1)
--- NOTE | 2018-11-14 04:58 | NUR ---
ASSESSMENT DOCUMENTED.PT BEEN RESTING IN NO ACUTE DISTRESS.DENIES PAIN.ON O2 AT 2LITERS PNC W/O RESP DISTRESS.TURNED AND REPOSITIONED Q2H.NALDO PELAYO.PT PROGRESSING SLOWLY TO POC.
[2018-11-14 07:54] VITALS: BP 105/77
--- NOTE | 2018-11-14 08:32 | NUR ---
Pt TRANSFERRED TO ICU ON THE EVENING OF 11/11/18. PT ON HOLD UNTIL NEW ORDERS RECEIVED Pt TRANSFERRED TO HIGHER LEVEL OF CARE.
--- NOTE | 2018-11-14 09:01 | NUR ---
ON THE EVENING OF 11/11 PT TRANSFERRED TO ICU. DUE TO CHANGE IN STATUS, PT IS ON HOLD FOR OCCUPATIONAL THERAPY UNTIL NEW ORDERS ARE RECEIVED IF/WHEN APPROPRIATE.
--- NOTE | 2018-11-14 09:21 | HC ---
[facility] [place] [address] [address] CONSULTATION Name: NEPTALI RODRIGUEZ Room #: 202-P ADM IN M.R.#: [id number] Admission: 11/07/18 Attend Phys: Antwan Ortiz MD Discharge: Date of : 39 Report #: [id number] THIS REPORT FOR: //name// CC: Antwna Ortiz REASON FOR THE CONSULTATION: Elevated creatinine. REASON FOR THE PRESENTATION: Weakness. HISTORY OF PRESENT ILLNESS: This is an 82-year-old with extensive past medical history including and not limited to diabetes mellitus, hypertension, cardiomyopathy with an ejection fraction of around 25%. He was recently hospitalized at [facility] and the dose of his torsemide was increased from three times a week to five times a week. He had been weak ever since his discharge. This was associated with inability to do his usual work. He also had dyspnea on exertion. The patient carries a diagnosis of chronic kidney diagnosis and his discharge creatinine was 1.8. This had risen up significantly in the last few days to a value of 2.7, 2.8. The patient has hyponatremia, hypotension on his presentation. He also had a mildly elevated troponin. He is being further evaluated by his primary care physician, GI, Cardiology. PAST MEDICAL HISTORY: 1. Hypertension. 2. Coronary artery disease. 3. Inguinal hernia repair. 4. Heart failure with an ejection fraction of around 25%. 5. Post-cardiac catheterization. 6. Aortic regurgitation. 7. Mitral regurgitation. 8. Tricuspid regurgitation. 9. Back surgery. 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 11. AICD placement, status post explantation of AICD due to infection. ALLERGIES: CHUY INHIBITOR. MEDICATIONS: 1. Carvedilol. 2. Torsemide. 3. Digoxin. 4. Crestor. FAMILY HISTORY: Significant for diabetes mellitus. REVIEW OF SYSTEMS: GENERAL: Significant for weakness and lethargy. CARDIOVASCULAR: No chest pain. [facility] [address] [place] [address] CONSULTATION Name: NEPTALI RODRIGUEZ Room #: 202-P [facility] IN .R.#: [id number] Admission: 11/07/18 Attend Phys: Antwan Ortiz MD Discharge: Date of : 39 Report #: [id number] PULMONARY: Significant for shortness of breath and dyspnea on exertion. GASTROINTESTINAL: Reduced oral intake. GENITOURINARY: No frequency, no urgency. PHYSICAL EXAMINATION: GENERAL: The patient was hypotensive. Blood pressure is 80/40. He is afebrile. HEAD AND NECK: No jugular venous distention. CHEST: Decreased air entry bilaterally. CARDIOVASCULAR: Systolic murmur present. ABDOMEN: Soft, nontender. EXTREMITIES: Lower extremities, no edema. LABORATORY VALUES: Reviewed. Creatinine is 2.8. Sodium is 135, BUN is 72. Troponin is 0.67. Digoxin is 1.0. IMPRESSION AND PLAN: 1. Hypotension. 2. Hyponatremia. 3. Acute kidney injury due to diuresis. 4. Cardiomyopathy with an ejection fraction of 30%. 5. Coronary artery disease. 6. It does look like that the patient's current renal issues are related to poor oral intake, dehydration while taking diuretics. 7. At this point, I would continue with the current IV saline. 8. Continue to monitor renal function. 9. Cardiology will be seeing him. 10. Hold diuretics. 11. GI following. 12. Hold blood pressure medications. 13. We will continue to follow up. <ELECTRONICALLY SIGNED> By: Yfn Gutierrez MD 11/14/1821 0 1438 Yfn Gutierrez MD /nt
[2018-11-14 11:32] VITALS: BP 102/57
--- NOTE | 2018-11-14 12:54 | NUR ---
FAXED REFERRAL TO [facility] SPOKE WITH CHANTALE IN ADM SHE RECEIVED REFERRAL AND WILL REVIEW. DCP TO FOLLOW.
--- NOTE | 2018-11-14 14:39 | NUR ---
met with patient and spouse. Patient sleeping but has refused therapy. He has told he doesnt want to cont with therapy. sp with Dr Ortiz regarding hospice services at home. Discussed with services of hospice and the Hospice house. Patient would need to be evaluated if candidate for hospice house reviewed with . Her dtr is coming into town and wants to meet with hospice with her mother. Plan hospice informational visit for 10:00 tomorrow with Hospice. Offered hospice options and interested in hospice as she has been at the house in past and her friend recommeded.
[2018-11-14 15:21] VITALS: BP 90/52
--- NOTE | 2018-11-14 15:35 | NUR ---
FAXED REFERRAL TO HOSPICE HOUSE SPOKE WITH IN ADM SHE RECEIVED REFERRAL AND PETER RN WILL MEET WITH PT AND FAMILY AT THE BEDSIDE TOMORROW 11/15 AT 10:00 AM. DCP TO FOLLOW.
--- NOTE | 2018-11-14 15:49 | NUR ---
FAMILY AGREE TO HAVE HOSPICE CARE CONSULT 10:00 AM TOMORROW. PT REMAINED IN THE BED THIS SHIFT AND REFUSED PT/OT. PT NOT TAKING IN MUCH PO, IVF REMAIN A5 50MLS/ HR. WILL CONTINUE TO ASSESS.
--- NOTE | 2018-11-14 18:06 | PATH ---
[facility] [place] [address] PATHOLOGY RPT PROCEDURE Name: CHARLES WRIGHT Room #: 202-P [facility] IN M.R.#: [id number] Admission: 11/07/18 Date of : 39 Discharge: Report #: [id number] Path Case #: [id number] [facility] Accession Number: [id number] . 01 Material submitted: . PART A: cecum - BX POLYP AT CECUM PART B: colon - BX POLYP AT ASCENDING COLON. Modifiers: ascending PART C: colon - BX POLYP AT SIGMOID COLON . 01 Clinical history: . Anemia Colon polyps, internal hemorrhoids . 02 Diagnosis: A. Polyp, at cecum, endoscopic biopsy: - Tubular adenoma. - Negative for high grade dysplasia. . B. Polyp, at ascending colon, endoscopic biopsy: - Tubular adenoma. - Negative for high grade dysplasia. . C. Polyp, at sigmoid colon, endoscopic biopsy: - Tubular adenoma. - Negative for high grade dysplasia. . (IUV:mml; 11/14/2018) QLM/11/14/2018 . 02 Electronically signed: . Tanisha Coronado MD, Pathologist NPI- [id number] . 01 Gross description: . A. The specimen is received in formalin, labeled "Charles Wright, KRYSTAL polyp at cecum" and consists of a fragment of pink-berg tissue measuring 0.5 x 0.3 x 0.1 cm which is entirely submitted in A1. . B. The specimen is received in formalin, labeled "Charles Wright, KRYSTAL polyp at ascending colon" and consists of 3 fragments of pink-berg tissue measuring between 0.2 x 0.2 cm and 0.3 x 0.2 cm which are entirely submitted in B1. . C. The specimen is received in formalin, labeled "Charles Wright, KRYSTAL polyp at sigmoid colon" and consists of a fragment of pink-berg tissue measuring 0.4 x 0.3 x 0.2 cm which is entirely submitted in C1. (SDY; 11/10/2018) [address] [address] PATHOLOGY RPT PROCEDURE Name: CHARLES WRIGHT Room #: 202-P [facility] IN M.R.#: [id number] Admission: 11/07/18 Date of : 39 Discharge: Report #: [id number] Path Case #: [id number] SYU/SYU . 02 Pathologist provided ICD-10: D12.0, D12.2, D12.5 . 02 CPT . 761975, 231120, 808998 Specimen Comment: A courtesy copy of this report has been sent to Specimen Comment: [phone], . Specimen Comment: Report sent to / DR TAFOYA Performed at: [address], [place], [place] [id number] MD Poli Moreno MD Phone: [phone] Performed at: [address] [id number] MD Tanisha Coronado MD Phone: [phone]
[2018-11-14 19:30] VITALS: BP 114/86
--- NOTE | 2018-11-15 02:34 | NUR ---
ASSUMED CARE OF PATIENT AT 1900. VSS, AFEBRILE. FAMILY AT BEDSIDE. DISCUSSED CONSULT WITH HOSPICE TOMORROW. PATIENT RESTING THROUGH THE NIGHT. REQUESTS ANXIETY MEDICATION. UP TO BSC ONCE. NO S/S OF DISTRESS. WILL CONTINUE TO MONITOR.
[2018-11-15 05:08] VITALS: BP 114/80
[2018-11-15 05:31] LABS: ALBUMIN 2.8 g/dL (3.4-5.0); CREATININE 2.1 mg/dL (0.7-1.3); PHOSPHORUS 3.8 mg/dL (2.5-4.9); POTASSIUM 4.4 mmol/L (3.5-5.1)
[2018-11-15 08:00] VITALS: BP 88/59
--- NOTE | 2018-11-15 08:32 | NUR ---
Pt REFUSED ALL THERAPY ON 11/14/18. FAMILY AND Pt HAVE CONSULT FOR HOSPICE THIS AM. WILL DISCHARGE Pt FROM OT SERVICES AT THIS TIME. IF Pt AND FAMILY CHANGE RECONSIDER AND WANT OT TO EVALUATION, PLEASE RE-ORDER SERVICES. THANK YOU.
[2018-11-15 11:37] VITALS: BP 99/66
--- NOTE | 2018-11-15 12:16 | NUR ---
PT DISCHARGING TODAY TO HOSPICE HOUSE FAXED DC ORDERS/SUMMARY TO FACILITY RECEIVED CONFIRMATION. ARRANGED TRANSPORTATION BY AMBULANCE ([facility]) FOR 1730 TODAY. SW TO NOTIFY FAMILY AND UNIT NOTIFIED. CHART COPY PER US RN TO CALL REPORT TO [phone].
--- NOTE | 2018-11-15 16:43 | NUR ---
PATIENT WAS SEEN BY LANCE BALDERAS NP WITH DR. HAWK, ON 11/14/18. PATIENT IS NOT INTERESTED IN COMIING TO REHAB. COLLATERAL CLERK INFORMED. THANK YOU FOR THIS REFERRAL.
--- NOTE | 2018-11-15 17:14 | NUR ---
ASSUMED CARE OF PT AT SHIFT CHANGE. ASSESSEMENTS CHARTED. PT ALERT TO SELF ONLY. HOSPICE EVALUATION TODAY. PT TO LEAVE FOR HOSPICE HOUSE THIS EVENING. FAMILY AWARE AND IN AGREEANCE. AIR HUNGER AND ANXIETY MANAGED WITH IV MEDS. PLAN FOR PT TO LEAVE AT APPROX 1730 TODAY. REPORT CALLED TO HOSPICE HOUSE.
== END 2018-11-15 19:17 | disposition hospice, home (50) | DRG 682 ==
LOC: ER 09:36 → EROBS 10:57 → 2N 10:57 → ICU 11-11 18:52 → 2N 11-13 07:50
PROVIDERS: Emergency Medicine; Hospitalist; ADMIT Family Medicine
PROC: 0DB68ZX Excision of Stomach, Via Natural or Artificial Opening Endoscopic, Diagnostic (ICD-10-PCS; principal; 2018-11-09)
PROC: 0DB98ZX Excision of Duodenum, Via Natural or Artificial Opening Endoscopic, Diagnostic (ICD-10-PCS; principal; 2018-11-09)
PROC: 0DBM8ZZ Excision of Descending Colon, Via Natural or Artificial Opening Endoscopic (ICD-10-PCS; 2018-11-10)
PROC: 0DBN8ZZ Excision of Sigmoid Colon, Via Natural or Artificial Opening Endoscopic (ICD-10-PCS; 2018-11-10)
PROC: 0DBH8ZZ Excision of Cecum, Via Natural or Artificial Opening Endoscopic (ICD-10-PCS; 2018-11-10)
DX: N17.9 Acute kidney failure, unspecified (principal); I50.43 Acute on chronic combined systolic (congestive) and diastolic (congestive) heart failure; I13.0 Hypertensive heart and chronic kidney disease with heart failure and stage 1 through stage 4 chronic kidney disease, or unspecified chronic kidney disease; E87.1 Hypo-osmolality and hyponatremia; Z66 Do not resuscitate; Z51.5 Encounter for palliative care; I25.10 Atherosclerotic heart disease of native coronary artery without angina pectoris; E78.5 Hyperlipidemia, unspecified; I25.5 Ischemic cardiomyopathy; N18.9 Chronic kidney disease, unspecified; N40.0 Benign prostatic hyperplasia without lower urinary tract symptoms; D64.9 Anemia, unspecified; I95.9 Hypotension, unspecified; I48.2 Chronic atrial fibrillation; E78.00 Pure hypercholesterolemia, unspecified; I34.0 Nonrheumatic mitral (valve) insufficiency; T45.515A Adverse effect of anticoagulants, initial encounter; F41.9 Anxiety disorder, unspecified; K29.70 Gastritis, unspecified, without bleeding; K29.80 Duodenitis without bleeding; K26.9 Duodenal ulcer, unspecified as acute or chronic, without hemorrhage or perforation; K64.8 Other hemorrhoids; D12.0 Benign neoplasm of cecum; D12.4 Benign neoplasm of descending colon; D12.5 Benign neoplasm of sigmoid colon; M54.9 Dorsalgia, unspecified; T50.2X5A Adverse effect of carbonic-anhydrase inhibitors, benzothiadiazides and other diuretics, initial encounter; I25.2 Old myocardial infarction; Z95.5 Presence of coronary angioplasty implant and graft; Z87.828 Personal history of other (healed) physical injury and trauma; Z86.010 Personal history of colon polyps; Z87.81 Personal history of (healed) traumatic fracture; Z95.1 Presence of aortocoronary bypass graft; Z95.810 Presence of automatic (implantable) cardiac defibrillator; Z79.01 Long term (current) use of anticoagulants; Z79.899 Other long term (current) drug therapy; Z88.8 Allergy status to other drugs, medicaments and biological substances; Z83.3 Family history of diabetes mellitus; Y92.89 Other specified places as the place of occurrence of the external cause
CPT/HCPCS: 10081; 10194; 10203; 62110; 62900; 70005